=== PATIENT | female | born 1995 | race Caucasian/White ===

== ENCOUNTER 2024-12-12 14:47 | Outpatient (CLI) | payer BC, SELFPAY | END 2024-12-12 14:48 | disposition home or self-care (01) | LOC: FRMREF 14:51 | PROVIDERS: PCP Family Medicine; Visit Provider Family Medicine | DX: B35.1 Tinea unguium (principal) | CPT/HCPCS: 80053 ==

== ENCOUNTER 2025-01-30 11:06 | Outpatient (CLI) | payer BC, SELFPAY | END 2025-01-30 11:07 | disposition home or self-care (01) | LOC: NFLDREF 02-03 08:09 | PROVIDERS: PCP Family Medicine; Referring Provider Family Medicine; Visit Provider Physician Assistant Medical | DX: R42 Dizziness and giddiness (principal) | CPT/HCPCS: 87086 ==

== ENCOUNTER 2025-02-27 11:26 | Outpatient (CLI) | payer BC, SELFPAY | END 2025-02-27 11:27 | disposition home or self-care (01) | LOC: FRMREF 11:27 | PROVIDERS: PCP Family Medicine; Visit Provider Family Medicine | DX: B35.1 Tinea unguium (principal) | CPT/HCPCS: 80053 ==